=== PATIENT | male | born 1960 | race African-American/Black ===

== ENCOUNTER 2023-12-20 09:59 | Emergency (ER) | payer OTHER ==
[2023-12-20 11:59] LABS: #Basophils 0.04 10x3/uL (0.0-0.2); #Eosinphils 0.32 10x3/uL (0.0-0.5); #Neutrophils 3.87 10x3/uL (1.5-8.4); %Basophils 0.6 % (0.0-2.0); %Eosinophils 4.6 % (0.0-6.0); %Lymphocytes 32.1 % (18.0-47.0); %Monocytes 7.1 % (0.0-10.0); %Neutrophils 55.3 % (40.0-75.0); Mean Corpuscular HGB CONC 34.1 g/dL (32.0-36.0); Mean Platelet Volume 10.9 fL (7.4-10.4); Platelet Count 183 10x3/uL (150-450); RBC Distribution Width 14.1 % (11.5-14.5); Red Blood Cell (RBC) Count 4.66 10x6/uL (4.32-5.72)
[2023-12-20 12:16] LABS: ALT (SGPT) 8 U/L (8-55); AST (SGOT) 13 U/L (5-34); Albumin 3.5 g/dL (3.4-4.8); Alkaline Phosphatase 82 U/L (40-110); Anion Gap 12 mmol/L (10-20); BUN (Urea Nitrogen) 11 mg/dL (8.4-25.7); Bilirubin, Total 0.3 mg/dL (0.2-1.2); Calc. Creatinine Clearance 0 mL/min (70-130); Calcium 9.3 mg/dL (7.8-10.44); Carbon Dioxide 28 mmol/L (23-31); Chloride 105 mmol/L (98-107); Estimated GFR 77; Globulin 3.4 g/dL (2.4-3.5); Glucose 96 mg/dL (80-115); Potassium 3.8 mmol/L (3.5-5.1); Protein, Total 6.9 g/dL (5.8-8.1); Sodium 141 mmol/L (136-145); Troponin I Less than 0.010 ng/mL (< 0.028)
[2023-12-20 12:53] LABS: Bilirubin Neg (Negative); Blood, Urine 10 (Negative); Clarity Slightly Cloudy (Clear); Glucose, Urine (Dipstick) Normal (Negative); Ketone, Urine Negative (Negative); Leukocyte 25 (Negative); Nitrite Positive (Negative); Protein, Urine (Dipstick) Negative (Neg-Trace); Urobilinogen Normal mg/dL (Less than 2)
[2023-12-20 13:01] LABS: CAUTI Indications for Culture Alt mental st,lethar
[2023-12-20 13:02] LABS: Bacteria/HPF 4+ HPF (None Seen)
[2023-12-20 13:03] LABS: Urine Culture Reflex No No
[2023-12-20] MEDS ORDERED: cefTRIAXone (ROCEPHIN) 1 GM VIAL ONE (14:30)
[2023-12-20] MEDS ORDERED: hydrALAZINE 20 MG/ML VIAL ONE (14:30)
== END 2023-12-20 19:15 | disposition left against medical advice (07) ==
LOC: CSHERS 09:59
DX: N39.0 Urinary tract infection, site not specified (principal); R20.0 Anesthesia of skin; R26.2 Difficulty in walking, not elsewhere classified; I10 Essential (primary) hypertension; Z55.6 Problems related to health literacy
CPT/HCPCS: 70450; 71045; 80053; 81001; 84484; 85025; 87077; 87086; 87186; 93005; 96374; 96375; J0360; J0696